=== PATIENT | male | born 1960 | race Two or more races ===

== ENCOUNTER → 2025-01-05 | Outpatient (CLI) | payer MEDICAID, SELFPAY ==
--- NOTE | 2025-01-05 15:53 | XR_ITS ---
EXAMINATION: Ankle, left 3 views . Technique: Ankle AP, oblique, lateral 3 views Date and time of exam: January 05, 2025 1602 hrs. Indications: Ankle pain one year. Findings: Normal bone density for age No fracture Mild osteoarthritis tibiotalar joint Impression: Mild osteoarthritis tibiotalar joint
== END | disposition home or self-care (01) ==
PROVIDERS: PCP Student in an Organized Health Care Education/Training Program; Referring Provider Student in an Organized Health Care Education/Training Program; Visit Provider Student in an Organized Health Care Education/Training Program
DX: M19.072 Primary osteoarthritis, left ankle and foot (principal)
CPT/HCPCS: 73610

== ENCOUNTER 2025-06-22 14:30 | Outpatient (RCR) | payer OTHER, SELFPAY ==
--- NOTE | 2025-06-07 14:02 | PTNOTE_ITS ---
PT OP Initial Eval Patient Information Outpatient Physical Therapy Treatment Date: 06/07/25 Visit Reasons: Left ankle PAIN Medical Diagnosis: s/p L lateral ankle ligament repair Treatment Dx #1: L ankle stiffness Treatment Dx #2: Decreased ROM L ankle Start of Care: 06/07/25 Date of Onset: 10/16/23 DOI 12/14/24 DOS Smoking Status Smoking Status: Never smoker Initial Assessment Subjective: Pt is 64 yr old tunisian speaking male s/p L lateral ankle ligament repair about 6 months ago. Pt reports stiffness of the ankle with walking and trying to jog. It doesn't hurt at rest or to walk. He injured the ankle falling from a ladder. 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 Pt has limited ankle DF ROM and gastroc tightness with decreased ankle PF strength with heel raises. ? Pt has stiff forefoot and hindfoot PROM. Pt requires skilled therapy and has fair rehab potential to meet goals. Eval followed by HEP. 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 Independent with HEP ? 2. Improved DF ROM to 10 deg and PF to 50 deg ? 3. Improved ambulatory distance to community distances with symmetrical gait pattern and step length 4. Pt will ascend/descend 1 flight of stairs with reciprocol pattern Treatment Plan 1. Manual therapy ? 2. Therex ? 3. Modalities as indicated, moist heat, ice, TENS Frequency and Duration: 2x a week for 9 weeks Certification Dates: 06/07/25 to 09/05/25 Procedure Charges OP PT Eval Mod Complex 30 minutes: Yes
--- NOTE | 2025-06-08 15:58 | PT.ODAYNRPT ---
PT Outpatient Daily Note OP Daily Note Outpatient Physical Therapy Treatment Date: 06/08/25 Visit Reasons: Left ankle PAIN Subjective: Same as time of evaluation Objective: See F/S for therex Assessment: Pt slightly hesitant to WB on L ankle with lunges Plan: Continue per POC Length of Time (minutes) of Treatment: 30 Minutes Procedure Charges Therapeutic Exercise 30 minutes: Yes
--- NOTE | 2025-06-12 16:12 | PT.ODAYNRPT ---
PT Outpatient Daily Note OP Daily Note Outpatient Physical Therapy Treatment Date: 06/12/25 Visit Reasons: Left ankle PAIN Subjective: Pt reports compliance with HEP, c/o L knee pain that is worse with bending. As per pt he is pending specialist for L knee, sees doctor on the . Objective: Please see flow sheet for ther ex list. Assessment: Modified interventions to accommodate reported pain in L knee. Plan: Continue with POC. Length of Time (minutes) of Treatment: 30 Minutes Procedure Charges Therapeutic Exercise 30 minutes: Yes
--- NOTE | 2025-06-15 17:30 | PT.ODAYNRPT ---
PT Outpatient Daily Note OP Daily Note Outpatient Physical Therapy Treatment Date: 06/15/25 Visit Reasons: Left ankle PAIN Subjective: Low ankle pain today Objective: See F/S for therex Assessment: Pt able to do heel raises and lunges today with min L ankle pain Plan: Continue per POC Length of Time (minutes) of Treatment: 30 Minutes Procedure Charges Therapeutic Exercise 30 minutes: Yes
--- NOTE | 2025-06-20 16:51 | PT.ODAYNRPT ---
PT Outpatient Daily Note <ANDREY Rajput - Last Filed: 06/20/25 16:57> OP Daily Note Visit Reasons: Left ankle PAIN Subjective: Reports low ankle pain today Objective: See F/S for therex Assessment: Pt responded well to therex with no increase in pain Plan: Continue with POC Length of Time (minutes) of Treatment: 30 Minutes <Aaron Tay PT - Last Filed: 06/20/25 17:21> OP Daily Note Outpatient Physical Therapy Treatment Date: 06/20/25 Procedure Charges <ANDREY Rajput - Last Filed: 06/20/25 16:57> Therapeutic Exercise 30 minutes: Yes
--- NOTE | 2025-06-22 15:21 | PT.ODAYNRPT ---
PT Outpatient Daily Note OP Daily Note Outpatient Physical Therapy Treatment Date: 06/22/25 Visit Reasons: Left ankle PAIN Subjective: Pt reports ankle is doing better but has high knee pain, pending consult with orhto specialist. Objective: Please see flow sheet for ther ex list. Assessment: Pt limited with intervention performance due to L knee pain. Plan: Continue with POC. Length of Time (minutes) of Treatment: 30 Minutes Procedure Charges Therapeutic Exercise 30 minutes: Yes
== END 2025-06-25 23:59 | disposition home or self-care (01) ==
LOC: CPTX 14:30
PROVIDERS: PCP Student in an Organized Health Care Education/Training Program; Referring Provider Student in an Organized Health Care Education/Training Program; Visit Provider Student in an Organized Health Care Education/Training Program
DX: M25.672 Stiffness of left ankle, not elsewhere classified (principal); I10 Essential (primary) hypertension; E11.9 Type 2 diabetes mellitus without complications; Z98.890 Other specified postprocedural states
CPT/HCPCS: 97110; 97162

== ENCOUNTER 2025-07-25 15:00 | Outpatient (RCR) | payer OTHER, SELFPAY ==
--- NOTE | 2025-06-28 16:10 | PT.ODAYNRPT ---
PT Outpatient Daily Note OP Daily Note Outpatient Physical Therapy Treatment Date: 06/28/25 Visit Reasons: left ankle pain Subjective: Pt reports L ankle is hurting today, shared that he twisted his ankle 4 days ago when walking on uneven ground. Objective: Please see flow sheet for ther ex list. Assessment: Slow progress with interventions due to pain complaint and secondary L ankle pain. Plan: Continue with pOC. Length of Time (minutes) of Treatment: 30 Minutes Procedure Charges Therapeutic Exercise 30 minutes: Yes
--- NOTE | 2025-06-30 15:24 | PT.ODAYNRPT ---
PT Outpatient Daily Note OP Daily Note Outpatient Physical Therapy Treatment Date: 06/30/25 Visit Reasons: left ankle pain Subjective: Pt reports less L knee pain today, slow progress with L ankle. Objective: Please see flow sheet for ther ex list. Assessment: Decrease c/o R knee pain allowing for intervention progression during todays PT session. Plan: Assess response to treatment. Length of Time (minutes) of Treatment: 30 Minutes Procedure Charges Therapeutic Exercise 30 minutes: Yes
--- NOTE | 2025-07-05 15:08 | PT.ODAYNRPT ---
PT Outpatient Daily Note OP Daily Note Outpatient Physical Therapy Treatment Date: 07/05/25 Visit Reasons: left ankle pain Subjective: Pt reports L ankle is doing ok, reports he can not bend L knee due to pain. Objective: Please see flow sheet for ther ex list. Assessment: Avoiding active knee flexion with ther ex performed to accommodate L knee pain. Verbal cues for pt to avoid L knee ER during ankle ROM exercises, pt complied. Plan: Continue with pOC. Length of Time (minutes) of Treatment: 30 Minutes Procedure Charges Therapeutic Exercise 30 minutes: Yes
--- NOTE | 2025-07-07 15:41 | PT.ODAYNRPT ---
PT Outpatient Daily Note OP Daily Note Outpatient Physical Therapy Treatment Date: 07/07/25 Visit Reasons: left ankle pain Subjective: Pt notice pain deep in the ankle with prolonged standing and walking. Objective: Please see flow sheet for ther ex list. 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 Plan: Continue with pOC. Length of Time (minutes) of Treatment: 30 Minutes Procedure Charges Therapeutic Exercise 30 minutes: Yes
--- NOTE | 2025-07-11 15:49 | PT.ODAYNRPT ---
PT Outpatient Daily Note OP Daily Note Outpatient Physical Therapy Treatment Date: 07/11/25 Visit Reasons: left ankle pain Subjective: Pt reports L ankle is doing ok, feels progress is slow. Objective: Please see flow sheet for ther ex list. Assessment: Pt demonstrates improved tolerance with interventions today, was able to use stationary bicycle. Plan: Continue with poC. Length of Time (minutes) of Treatment: 30 Minutes Procedure Charges Therapeutic Exercise 30 minutes: Yes
--- NOTE | 2025-07-18 16:39 | PT.ODAYNRPT ---
PT Outpatient Daily Note OP Daily Note Outpatient Physical Therapy Treatment Date: 07/18/25 Visit Reasons: left ankle pain Subjective: Pt c/o minimal pain to Lt ankle. 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 Objective: See F/S for therex performed Assessment: No increase in pain to Lt ankle with therex. Improvement with SLB; increased duration from 5 seconds to 10 seconds. Progressed to resisted ankle 4 way exercise; performed well with min cues required to correct form. Plan: Continue with POC Length of Time (minutes) of Treatment: 30 Minutes Procedure Charges Therapeutic Exercise 30 minutes: Yes
--- NOTE | 2025-07-25 15:33 | PT.ODAYNRPT ---
PT Outpatient Daily Note OP Daily Note Outpatient Physical Therapy Treatment Date: 07/25/25 Visit Reasons: left ankle pain Subjective: Pt reports minimal Lt ankle pain, explains he experiences an increase in pain and swelling with wearing work boots and long periods of walking. Objective: See F/S for therex performed Assessment: Minimal pain to Lt ankle with therex, advised to maintain within tolerable ROM - pt complied. Good tolerance to STM to Lt lateral ankle with min TTP. Presents with DF ROM limitation, no pain with passive stretching into DF. Plan: Continue with POC Length of Time (minutes) of Treatment: 30 Minutes Procedure Charges Therapeutic Exercise 30 minutes: Yes
== END 2025-07-25 23:59 | disposition home or self-care (01) ==
LOC: CPTX 15:00
PROVIDERS: PCP Nurse Practitioner Family; Referring Provider Nurse Practitioner Family; Visit Provider Nurse Practitioner Family
DX: M25.672 Stiffness of left ankle, not elsewhere classified (principal); I10 Essential (primary) hypertension; E11.9 Type 2 diabetes mellitus without complications; S99.912D Unspecified injury of left ankle, subsequent encounter; W11.XXXD Fall on and from ladder, subsequent encounter
CPT/HCPCS: 97110

== ENCOUNTER 2025-08-22 14:00 | Outpatient (RCR) | payer OTHER, SELFPAY ==
--- NOTE | 2025-07-27 17:26 | PT.ODAYNRPT ---
PT Outpatient Daily Note OP Daily Note Outpatient Physical Therapy Treatment Date: 07/27/25 Visit Reasons: Left ankle pain Subjective: Pt reports no changes to Lt ankle, c/o minimal pain. Objective: See F/S for therex Assessment: Demo'd improvement with balance in tandem stance along with SLB exercise, performed best with vc's to avoid lifting his toes and to utilize them for balance. Plan: Continue with POC Length of Time (minutes) of Treatment: 30 Minutes Procedure Charges Therapeutic Exercise 30 minutes: Yes
--- NOTE | 2025-08-01 18:05 | PT.ODAYNRPT ---
PT Outpatient Daily Note OP Daily Note Outpatient Physical Therapy Treatment Date: 08/01/25 Visit Reasons: Left ankle pain Subjective: Minimal L ankle pain Objective: See F/S for therex Assessment: Low pain with therex Plan: Continue with POC Length of Time (minutes) of Treatment: 30 Minutes Procedure Charges Therapeutic Exercise 30 minutes: Yes
--- NOTE | 2025-08-08 15:40 | PT.ODAYNRPT ---
PT Outpatient Daily Note OP Daily Note Outpatient Physical Therapy Treatment Date: 08/08/25 Visit Reasons: Left ankle pain Subjective: Minimal L ankle pain Objective: See F/S for therex Assessment: Low pain with lunging, squatting and heel raise therex in the L ankle Plan: Continue with POC Length of Time (minutes) of Treatment: 30 Minutes Procedure Charges Therapeutic Exercise 30 minutes: Yes
--- NOTE | 2025-08-10 17:27 | PT.ODAYNRPT ---
PT Outpatient Daily Note OP Daily Note Outpatient Physical Therapy Treatment Date: 08/10/25 Visit Reasons: Left ankle pain Subjective: Minimal L ankle pain but the L knee hurts with lunging Objective: See F/S for therex Assessment: Low pain with lunging, squatting and heel raise therex in the L ankle Plan: Continue with POC Length of Time (minutes) of Treatment: 30 Minutes Procedure Charges Therapeutic Exercise 30 minutes: Yes
--- NOTE | 2025-08-15 15:33 | PT.ODAYNRPT ---
PT Outpatient Daily Note OP Daily Note Outpatient Physical Therapy Treatment Date: 08/15/25 Visit Reasons: Left ankle pain Subjective: Minimal L ankle pain but the L knee hurts with lunging Objective: See F/S for therex Assessment: Low pain with lunging, squatting and heel raise therex in the L ankle Plan: Reassess Length of Time (minutes) of Treatment: 30 Minutes Procedure Charges Therapeutic Exercise 30 minutes: Yes
--- NOTE | 2025-08-22 15:08 | PT.ODS1RPT ---
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 He says it swells if he wears boots and that he can ambulate for about 15 mins straight. He reports a little less pain in the ankle since starting therapy Objective: See F/S for therex L ankle AROM: DF: 5 deg PF: 50 deg TTP: non TTP Strength: DF: 4/5 PF: 4/5 Assessment: Pt has attended 18/24 visits with good progress with therapy goals. Pt has low pain with lunging, squatting and heel raise therex in the L ankle. Pt has improved ROM of L ankle to 5 deg which is shy of the 10 deg goal. He would benefit from continued therapy to ambulate more than 15 mins and to ascend/descend 1 flight of stairs with reciprocol pattern. Plan: The MD order says 18 visits but the authorization says 24 so we will need provider's signature to continue x6 visits to 24. Procedure Charges Therapeutic Exercise 30 minutes: Yes
== END 2025-08-25 23:59 | disposition home or self-care (01) ==
LOC: CPTX 14:00
PROVIDERS: PCP Nurse Practitioner Family; Referring Provider Nurse Practitioner Family; Visit Provider Nurse Practitioner Family
DX: M25.572 Pain in left ankle and joints of left foot (principal); M25.672 Stiffness of left ankle, not elsewhere classified; I10 Essential (primary) hypertension; E11.9 Type 2 diabetes mellitus without complications
CPT/HCPCS: 97110